=== PATIENT | female | born 2000 | race Caucasian/White ===

== ENCOUNTER 2025-04-07 10:38 | Outpatient (AMB) | payer BC, SELFPAY ==
[2025-04-07 10:58] VITALS: BP 129/84; PULSE 80; RESP 16; TEMP 36.6; O2SAT 98; BMI 32.0
--- NOTE | 2025-04-07 10:58 | GYNCLNT_ITS ---
Vital Signs 04/07/25 10:58 Height 1.68 m Height Method Stated Weight 90.038 kg Weight Measurement Method Standing Scale BMI 32.0 BP 129/84 Blood Pressure Source Automatic Cuff Blood Pressure Location Left Upper Arm Position Sitting Respiration 16 Pulse 80 Pulse Source Monitor Temp 97.9 F Temp Source Oral Pulse Oximetry (%) 98 Oxygen Delivery Method Room Air Allergies/Home Meds Allergies & Medications Allergies NKA* Allergy (Uncoded 04/07/25 10:59) Medication Reconciliation Cetirizine * (ZYRTEC *) 10 mg PO BID #0 tabs 09/02/14 [History Confirmed 04/07/25] norethindrone 0.4 mg-ethinyl estradiol 35 mcg tablet (Vyfemla (28)) 1 tab PO QDAY 10/13/21 [History Confirmed 04/07/25] Intake Visit Data Collection New Patient or Established: Established Patient (seen at [facility] within 3 years) Reason for Visit:: ANNUAL WELLNESS Seen by Clinical Staff ONLY (RN/MA): No Sound Effects Technician Required: No Do You Feel Safe at Home: Yes Authorities Contacted: N/A PCP or OBGYN visit in last 3 months: Yes Hx Now: No Are you currently on any form of Control: No Last menstrual period: 04/02/25 Pain Present Currently: No Pain Scale Used: Villa-Garza/Numerical Pain scale:: 0 Smoking Status Smoking Status: Never smoker 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 1. Little interest or pleasure in doing things: not at all 2. Feeling down, depressed, or hopeless: not at all Total score: 0 PHQ-9 3. Trouble falling or staying asleep, or sleeping too much: Not at all 4. Feeling tired or having little energy: Not at all 5. Poor appetite or overeating: Not at all 6. Feeling bad about yourself - or that you are a failure or have let yourself or your family down: Not at all 7. Trouble concentrating on things, such as reading the newspaper or watching television: Not at all 8. Moving or speaking so slowly that other people could have noticed? - Or the opposite - being so fidgety or restless that you have been moving around a lot more than usual: not at all 9. Thoughts that you would be better off or of hurting yourself in some way: Not at all Total score: 0 Source: Developed by Drs. Fady Pozo, Capri Morse, Adilson Hurd and colleagues, with an educational piedad from [employer]. 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 Patient's last period was April 02, 2025. Menarche at 13. Reports menses are every month lasting about 4 days and normal flow. Patient had taken control pills for 8 years but stopped them for a month. Patient's not planning on control at this minutes she wants to see how her body does patient partner to use condoms sporadic. Patient denies any history of STDs. Denies any history of chronic illness. She had a history of a fractured clavicle and she has a plate in that same she drinks occasionally. Patient has a family history of breast cancer on her father side patient's mother had breast cancer and ovarian cancer and screening showed that it is not genetic. Denies any existence of SYNTHETIC GEM PRESS OPERATOR complaints about at this time. Otherwise patient is doing well. Patient has been concerned about inability to lose weight despite diet and exercise. She would like to be tested for PCOS Review of Systems Review of Systems Systems Reviewed: All systems reviewed, normal except as documented Exam Narrative Physical exam: euthyroid. both breast soft, non tender, no masses, no skin changes. nipple intact, no nipple discharge. abdomen soft, non tender, no masses, perineum clean, no lesion, vagina pink, small old blood, nullip cx. no CMT, uterus normal size and shape, mobile, non tender General Limitations: no limitations General Appearance: alert, in no apparent distress, comfortable, cooperative, healthy appearing, well developed and well groomed Head Head exam: atraumatic, normocephalic and normal inspection Chest Chest inspection: Present normal inspection and symmetric chest wall rise Resp Respiratory exam: Present normal lung sounds bilaterally Card Cardiovascular exam: Present regular rate, normal rhythm and normal heart sounds Abdominal Abdominal exam: Present soft and normal bowel sounds External exam: Present normal external exam Speculum exam: Present normal speculum exam Bimanual exam: Present normal bimanual exam Extremities Extremities exam: Present normal inspection and full ROM Psych Psychiatric exam: Present normal affect and normal mood Office Procedures OB Clinic LOC & Office Proc's Nursing/Assessment Patient Status: Established Patient OB Clinic Nursing Assessment: Medication Reconciliation, Update PMH in EMR and Vital Signs OB Clinic Coordination of Care: Complex Care and Chronic Disease 1-5, Consent,records obtained, informed consent, Education Simp Pt/Fam, Lab and Imaging orders, Results/Orders obtained and Staff clarify orders Miscellaneous Interventions: Breast Exam and Pelvic/Pap Smear Set up Established Patient Charge Established Patient Point Assignment: 155 Established Patient Point Charge: EP Level 4 (120-155) In Clinic Procedures Pap Smear: Yes Papsmear Ambulatory Location Ambulatory Dept Location: OB Clinic Patient Information Last Menstral Period (LMP): 04/02/25 Last menstral period date (LMP): Yes : 0 Para: 0 Spontaneous (s): 0 Theraputic (s): 0 Pap Smear Procedure Chaparone in room during procedure?: No Pre-op diagnosis general: well woman exam Post-op diagnosis procedure note: Same Procedure Notes:: pap smear done. tolerated well Assessment & Plan Diagnosis / Problem List (1) Encounter for routine gynecological examination with Papanicolaou smear of cervix: Status: Acute (2) Encounter for Pap smear of cervix with HPV DNA cotesting: Status: Acute (3) Breast cancer screening: Status: Acute (4) Other specified irregular menstruation: Status: Acute Plan Pap smear today. I ordered bilateral mammogram because of family history. PCOS labs were ordered. I discussed diet and regular exercise. Continue multivitamin with folic acid in it. And reviewed safe sex and condom use and compliance patient will return in 2 weeks for Pap and lab results. discuss safe sex Additional Plan Follow Up: 2 Weeks (lab results)
== END 2025-04-07 11:35 | disposition home or self-care (01) ==
LOC: HODSOBC 10:38
PROVIDERS: PCP Family Medicine; Referring Provider Family Medicine; Supervising Provider Advanced Practice Midwife; Visit Provider Advanced Practice Midwife
DX: Z01.419 Encounter for gynecological examination (general) (routine) without abnormal findings (principal); Z11.51 Encounter for screening for human papillomavirus (HPV); N92.5 Other specified irregular menstruation; Z80.3 Family history of malignant neoplasm of breast; Z80.41 Family history of malignant neoplasm of ovary
CPT/HCPCS: 99214; Q0091; G0463

== ENCOUNTER → 2025-04-07 | Outpatient (CLI) | payer BC, SELFPAY ==
[2025-04-07 13:26] LABS: Glucose Estimated Average 94 mg/dL (80-131); Hemoglobin A1C 4.9 % Hgb (4.8-6.0)
[2025-04-07 13:41] LABS: Thyroid Stimulating Hormone 1.03 uIU/mL (0.55-4.78)
[2025-04-07 14:02] LABS: Follicle Stimulating Hormone 6.81 mIU/mL (See Note)
[2025-04-20 14:42] LABS: DHEA Sulfate* 166 mcg/dL (18-391); Estradiol, Free 0.92 pg/mL; Estradiol, Total 71 pg/mL; Prolactin* 3.5 ng/mL; Sex Hormone Binding Globulin* 78 nmol/L (17-124)
== END | disposition home or self-care (01) ==
LOC: COPL 12:05
PROVIDERS: Referring Provider Advanced Practice Midwife; Visit Provider Advanced Practice Midwife
DX: Z12.39 Encounter for other screening for malignant neoplasm of breast (principal)
CPT/HCPCS: 36415; 82627; 82670; 82681; 83001; 83036; 84146; 84270; 84443

== ENCOUNTER 2025-05-06 15:42 | Outpatient (AMB) | payer BC, SELFPAY ==
--- NOTE | 2025-05-06 15:44 | AMB.GYNCLNOT ---
Allergies/Home Meds Allergies & Medications Allergies NKA* Allergy (Uncoded 05/06/25 15:47) Medication Reconciliation Cetirizine * (ZYRTEC *) 10 mg PO BID #0 tabs 09/02/14 [History Confirmed 05/06/25] norethindrone 0.4 mg-ethinyl estradiol 35 mcg tablet (Vyfemla (28)) 1 tab PO QDAY 10/13/21 [History Confirmed 05/06/25] Intake Visit Data Collection New Patient or Established: Established Patient (seen at [facility] within 3 years) Reason for Visit:: LAB RESULTS Seen by Clinical Staff ONLY (RN/MA): No Track Man Required: No Do You Feel Safe at Home: Yes Authorities Contacted: N/A PCP or OBGYN visit in last 3 months: Yes Date of Last PCP or OBGYN visit: 04/07/25 Hx Now: No Are you currently on any form of Control: No Last menstrual period: 04/30/25 Pain Present Currently: No Pain Scale Used: Villa-Garza/Numerical Pain scale:: 0 Smoking Status Smoking Status: Never smoker For Telemed visit only Telemed Video/Phone Visit: Yes Verbal consent obtained for Telemed visit?: Yes Verbal Consent witness name: NATAN VALLEJO./DOMI STANLEY 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 1. Little interest or pleasure in doing things: not at all 2. Feeling down, depressed, or hopeless: not at all Total score: 0 PHQ-9 3. Trouble falling or staying asleep, or sleeping too much: Not at all 4. Feeling tired or having little energy: Not at all 5. Poor appetite or overeating: Not at all 6. Feeling bad about yourself - or that you are a failure or have let yourself or your family down: Not at all 7. Trouble concentrating on things, such as reading the newspaper or watching television: Not at all 8. Moving or speaking so slowly that other people could have noticed? - Or the opposite - being so fidgety or restless that you have been moving around a lot more than usual: not at all 9. Thoughts that you would be better off or of hurting yourself in some way: Not at all Total score: 0 If you checked off any problems, how difficult have these problems made it for you to do your work, take care of things at home, or get along with other people?: not difficult at all Source: Developed by Drs. Fady Pozo, Capri Morse, Adilson Hurd and colleagues, with an educational piedad from [employer]. Depression screen completed yes Social History Living Situation History Marital Status: Single Lives With: Family Housing: House Tobacco History Smoking Status: Never smoker Second Hand Smoke Exposure: No Alcohol History Alcohol Intake: Current Alcohol Intake Frequency: holidays/special occasions only Domestic Abuse History Do You Feel Safe at Home: Yes History of Present Illness HPI Narrative 24-year-old [place] for PCOS lab results. Last period April 30, 2025. Patient reports that her periods are every month lasting 4 days. They are not very painful. She denies any existence of chronic illness. Denies social habits. Previous history of repair of her fractured shoulder. And she had surgery on her finger for trigger finger. No other WELL PULLER HEAD complaints. Patient stopped her control pills 2 months ago Review of Systems Review of Systems Systems Reviewed: All systems reviewed, normal except as documented Exam Narrative Physical exam: [facility] visit Results Objective Laboratory: PCOS labs wnl, A1: 4.9, TSH: 1.03, Estradiol: 0.92, fsh : 6.81, DHEAS: wnl, pap wnl/gc/ct- Office Procedures OB Clinic LOC & Office Proc's Nursing/Assessment Patient Status: Established Patient OB Clinic Nursing Assessment: Medication Reconciliation and Update PMH in EMR OB Clinic Coordination of Care: Education Complex Pt/Fam, Consent,records obtained, informed consent, Results/Orders obtained and Staff clarify orders Established Patient Charge Established Patient Point Assignment: 55 Telehealth If patient is seen using Teleconference methods, complete New/Est section, but DO NOT sera points only sera the correct Telemed visit type Telemed Phone/Video with patient at home & Dr,PA,REMITTANCE CLERK: Yes Assessment & Plan Diagnosis / Problem List (1) Other specified irregular menstruation: Status: Acute Plan Have reviewed labs with patient. Continue to track cycles. Advised to take multivitamin with folic acid. Pap smear in 3 years. Discussed diet and regular exercise Additional Plan Follow Up: 3 Years (pap)
== END 2025-05-06 16:27 | disposition home or self-care (01) ==
LOC: HODSOBC 15:42
PROVIDERS: Supervising Provider Advanced Practice Midwife; Visit Provider Advanced Practice Midwife
DX: N92.5 Other specified irregular menstruation (principal)
CPT/HCPCS: 99212; G0463